=== PATIENT | male | born 1955 | race Caucasian/White ===

== ENCOUNTER 2020-08-15 15:55 | Outpatient (CLI) | payer MEDICARE ==
[~2020-08-15] VITALS: Ht 177.8 cm; Wt 83.5 kg
[2020-08-15 16:26] VITALS: BP 155/86; PULSE 99; TEMP 98.1
[2020-08-15] MEDS ORDERED: MS CONTIN 115 MG/TAB PO (16:47)
[2020-08-15] MEDS ORDERED: ROXICODONE 55 MG/TAB PO (16:48)
[2020-08-15] MEDS ORDERED: VITAMIN C500 MG PO (16:59)
[2020-08-15] MEDS ORDERED: VITAMIN D 400400 IU PO (17:00)
[2020-08-15] MEDS ORDERED: TUMS500 MG PO (17:01)
[2020-08-15] MEDS ORDERED: PRILOTC PO (17:01)
[2020-08-15] MEDS ORDERED: FERROUS SU325 MG/TAB PO (17:02)
[2020-08-15] MEDS ORDERED: HYTRIN 2MG CAPSU2 MG PO (17:03)
[2020-08-15] MEDS ORDERED: RISPERDAL 1M1 MG/TAB PO (17:03)
[2020-08-15] MEDS ORDERED: SALONPAS1 EACH TP (17:04)
[2020-08-15] MEDS ORDERED: LIPITOR 40MG TA40 MG PO (17:04)
[2020-08-15] MEDS ORDERED: GLUCOPHAGE1000 MG PO (17:05)
[2020-08-15] MEDS ORDERED: PROZAC 20MG20 MG PO (17:05)
[2020-08-15] MEDS ORDERED: PRINIVIL40 MG PO (17:06)
[2020-08-15] MEDS ORDERED: ZYLOPRIM 100MG100 MG PO (17:06)
[2020-08-15] MEDS ORDERED: WELLBUTRIN SR150 M1 PO (17:07)
[2020-08-15] MEDS ORDERED: LASIX 20MG TABL20 MG PO (17:08)
[2020-08-15] MEDS ORDERED: KLOR-CON SPRIN10 MEQ PO (17:08)
== END 2020-08-15 17:12 | disposition home or self-care (01) ==
LOC: EUO 15:55
DX: M81.0 Age-related osteoporosis without current pathological fracture (principal)
CPT/HCPCS: J0897